=== PATIENT | female | born 1955 | race Caucasian/White ===

== ENCOUNTER 2019-06-30 10:08 | Day surgery (SDC) | payer MEDICARE, MEDICAID ==
[~2019-06-30 10:08] MED LIST: Phenylephrine 2.5% Ophth Soln 5 ML BOT ONE
== END 2019-06-30 13:30 | disposition home or self-care (01) ==
LOC: SDC 10:08
PROVIDERS: ATTEND Ophthalmology
PROC: 085J3ZZ Destruction of Right Lens, Percutaneous Approach (ICD-10-PCS; principal; 2019-06-30)
DX: E11.36 Type 2 diabetes mellitus with diabetic cataract (principal); H26.491 Other secondary cataract, right eye; Z88.1 Allergy status to other antibiotic agents; Z88.5 Allergy status to narcotic agent; Z79.899 Other long term (current) drug therapy

== ENCOUNTER 2019-08-14 18:40 | Emergency (ER) | payer MEDICARE, MEDICAID ==
[2019-08-14 19:30] LABS: Bilirubin Negative (Negative); Blood, Urine 1+ (Negative); Clarity Clear (Clear); Glucose, Urine (Dipstick) Normal (Negative); Leukocyte 75 Leu/uL (Negative); Nitrite Negative (Negative); Protein, Urine (Dipstick) Negative (Neg-Trace); Squamous Epithelial 0-3 HPF (0-3); Urobilinogen Normal mg/dL (Less than 2); WBC/HPF 0-3 HPF (0-3)
[2019-08-14 19:40] LABS: Bacteria/HPF 1+ HPF (None Seen)
[2019-08-14 19:52] LABS: #Basophils 0.1 thou/uL (0.0-0.2); #Eosinphils 0.5 thou/uL (0.0-0.7); #Lymphocytes 3.2 thou/uL (1.20-3.40); #Neutrophils 7.5 thou/uL (1.40-6.50); %Basophils 1.1 % (0.0-1.0); %Lymphocytes 26.1 % (21.0-51.0); %Monocytes 8.4 % (0.0-10.0); %Neutrophils 60.4 % (42.0-75.0); Hemoglobin 15.2 g/dL (12.0-16.0); Mean Corpuscular Hemoglobin 30.5 pg (27.0-31.0); Mean Corpuscular Volume 89.7 fL (78.0-98.0); Mean Platelet Volume 9.5 fL (7.4-10.4); Platelet Count 192 thou/uL (130-400); RBC Distribution Width 12.3 % (11.5-14.5); Red Blood Cell (RBC) Count 4.99 mill/uL (4.20-5.40); White Blood Cell (WBC) Count 12.4 thou/uL (4.8-10.8)
[2019-08-14] MEDS ORDERED: Morphine 4 MG/ML VIAL ONE (19:57)
[2019-08-14] MEDS ORDERED: Ondansetron PF 4 MG/2 ML Vial ONE (19:57)
[2019-08-14 20:08] LABS: ALT (SGPT) 12 U/L (8-55); AST (SGOT) 13 U/L (5-34); Albumin 4.2 g/dL (3.4-4.8); Alkaline Phosphatase 96 U/L (40-110); Anion Gap 15 mmol/L (10-20); BUN (Urea Nitrogen) 13 mg/dL (9.8-20.1); Bilirubin, Total 0.4 mg/dL (0.2-1.2); Calc. Creatinine Clearance 0 mL/min (70-130); Calcium 9.3 mg/dL (7.8-10.44); Carbon Dioxide 24 mmol/L (23-31); Chloride 107 mmol/L (98-107); Estimated GFR-MDRD 82; Globulin 2.7 g/dL (2.4-3.5); Glucose 89 mg/dL (80-115); Potassium 4.2 mmol/L (3.5-5.1); Protein, Total 6.9 g/dL (6.0-8.3); Sodium 142 mmol/L (136-145)
[2019-08-14] MEDS ORDERED: diphenhydrAMINE 50 MG/ML VIAL ONE (20:08)
--- NOTE | 2019-08-14 21:34 | CT ---
CT ABDOMEN NONCONTRAST CT PELVIS NONCONTRAST: (Urolithiasis protocol) DATE: 08/14/2019 HISTORY: 64-year-old female with left flank pain, dysuria, and urinary frequency. COMPARISON: 02/16/2019 TECHNIQUE: IV injection of iodinated contrast media: None Oral contrast media: None FINDINGS: Other than for urolithiasis, the lack of IV and oral contrast limits the evaluation. A few punctate 1 or 2 mm calculi in right renal upper-mid pole calculi, at least 2. Punctate 1 mm calculus at left renal upper pole calyx. Another punctate calcification at left renal upper pole is atherosclerotic calcific patient of renal artery branch. No hydronephrosis. No ureteral or bladder calculus. Appendix not visualized, (has there been appendectomy?) . Within limitations of noncontrast scan, no major pathology identified involving liver, pancreas, adre nals, spleen, or urinary bladder. No colonic diverticulitis, small bowel dilation, ascites, pneumoperitoneum, or pleural effusion. Cholecystectomy clips. No interval change. IMPRESSION: 1) mild bilateral nephrolithiasis consisting of a few tiny 1 or 2 mm calculi. 2) no obstructive uropathy.
[2019-08-14] MEDS ORDERED: Acetaminophen 500 MG TAB ONE (22:03)
[2019-08-14] MEDS ORDERED: Phenazopyridine HCl 97.5 MG TABLET ONE (22:15)
== END 2019-08-14 22:32 | disposition home or self-care (01) ==
LOC: ERS 18:40
DX: N39.0 Urinary tract infection, site not specified (principal); I10 Essential (primary) hypertension; J44.9 Chronic obstructive pulmonary disease, unspecified; F31.9 Bipolar disorder, unspecified; F17.210 Nicotine dependence, cigarettes, uncomplicated; Z87.442 Personal history of urinary calculi; Z79.891 Long term (current) use of opiate analgesic; Z79.899 Other long term (current) drug therapy
CPT/HCPCS: 74176; 80053; 81003; 81015; 85025; 87086; 96374; 96375; J1200; J2270; J2405

== ENCOUNTER 2021-01-01 11:32 | Outpatient (CLI) | payer MEDICARE, MEDICAID ==
[2021-01-01 14:47] LABS: Bilirubin Neg (Negative); Blood, Urine 25 (Negative); Clarity Clear (Clear); Glucose, Urine (Dipstick) Normal (Negative); Ketone, Urine Negative (Negative); Leukocyte Negative (Negative); Nitrite Negative (Negative); Protein, Urine (Dipstick) Negative (Neg-Trace); Specific Gravity, Urine 1.005 (1.002-1.036); Urobilinogen Normal mg/dL (Less than 2)
[2021-01-01 14:53] LABS: Hemoglobin 15.4 g/dL (12.0-15.5); Mean Corpuscular HGB CONC 32.3 g/dL (32.0-36.0); Mean Corpuscular Hemoglobin 29.3 pg (27.0-33.0); Mean Corpuscular Volume 90.7 fl (81.6-98.3); Mean Platelet Volume 12.4 fl (7.4-10.4); Platelet Count 225 10x3/uL (150-450); RBC Distribution Width 13.7 % (11.5-14.5); Red Blood Cell (RBC) Count 5.26 10x6/uL (3.90-5.03); White Blood Cell (WBC) Count 10.1 10x3/uL (3.5-10.5)
[2021-01-01 15:14] LABS: PTT 28.7 sec (22.0-33.0); Prothrombin Time 10.9 sec (9.5-12.1)
[2021-01-01 15:14] LABS: RBC/HPF 0-3 HPF (0-3); Squamous Epithelial None Seen HPF (0-3); WBC/HPF None Seen HPF (0-3)
[2021-01-01 15:15] LABS: Bacteria/HPF None Seen HPF (None Seen)
[2021-01-01 15:15] LABS: Anion Gap 14 mmol/L (10-20); BUN (Urea Nitrogen) 15 mg/dL (9.8-20.1); Calc. Creatinine Clearance 0 mL/min (70-130); Calcium 9.4 mg/dL (7.8-10.44); Carbon Dioxide 28 mmol/L (23-31); Chloride 101 mmol/L (98-107); Glucose 74 mg/dL (80-115); Potassium 4.9 mmol/L (3.5-5.1); Sodium 138 mmol/L (136-145)
[2021-01-01 21:39] LABS: SARS-CoV-2 PCR by NAA Not Detected (NotDetected)
== END 2021-01-01 11:33 | disposition home or self-care (01) ==
LOC: LABBT 11:32
PROVIDERS: ATTEND Urology
DX: Z01.818 Encounter for other preprocedural examination (principal); N39.41 Urge incontinence; N20.0 Calculus of kidney; N39.0 Urinary tract infection, site not specified; N39.3 Stress incontinence (female) (male); E66.01 Morbid (severe) obesity due to excess calories; Z20.822 Contact with and (suspected) exposure to COVID-19
CPT/HCPCS: 71046; 80048; 81001; 85027; 85610; 85730; 87086; U0003; U0005; 93005; 93010

== ENCOUNTER 2021-01-04 05:36 | Day surgery (SDC) | payer MEDICARE, MEDICAID ==
[2021-01-03 10:15] VITALS: BMI 41.6
[2021-01-04] MEDS ORDERED: SUGAMMADEX SODIUM 500 MG/5 ML VIAL ONE (06:13)
[2021-01-04] MEDS ORDERED: Fentanyl 100 MCG/2 ML VIAL ONE ×3 (06:13→10:51)
[2021-01-04] MEDS ORDERED: Famotidine/PF 20 mg/2ml Vial ONE (06:14)
[2021-01-04] MEDS ORDERED: Neomycin-Polymyxin 1 ML AMP ONE (06:28)
[2021-01-04] MEDS ORDERED: Bupivacaine 0.25% HCL 30 ML VIAL ONE (06:28)
[2021-01-04] MEDS ORDERED: Midazolam HCl 2 mg/2 ml Vial ONE (07:29)
[2021-01-04] MEDS ORDERED: Propofol 1,000 MG/100 ML VIAL IV ONE (07:43)
[2021-01-04] MEDS ORDERED: Lidocaine 1% PF 5 ML VIAL ONE (07:59)
[2021-01-04] MEDS ORDERED: Ondansetron PF 4 MG/2 ML Vial ONE (07:59)
[2021-01-04] MEDS ORDERED: Rocuronium Bromide 10 MG/ML (10ML VIAL) ONE (07:59)
[2021-01-04] MEDS ORDERED: PHENYLEPHRINE-NS 100 MCG/ML 10 ML SYRINGE ONE (07:59)
[2021-01-04] MEDS ORDERED: Metoclopramide HCl 10 MG/2 ML VIAL ONE (07:59)
[2021-01-04] MEDS ORDERED: PROPOFOL 200 MG/20 ML VIAL ONE (07:59)
[2021-01-04] MEDS ORDERED: Glycopyrrolate 0.2 MG/ML 5 ML SYRINGE ONE (07:59)
[2021-01-04] MEDS ORDERED: HYDROcodone/Acetaminophen 5/325 mg Tablet ONE (11:32)
== END 2021-01-04 12:45 | disposition home or self-care (01) ==
LOC: SDC 05:36
PROVIDERS: ATTEND Urology
PROC: 01HY0MZ Insertion of Neurostimulator Lead into Peripheral Nerve, Open Approach (ICD-10-PCS; principal; 2021-01-04)
DX: N39.46 Mixed incontinence (principal); N32.81 Overactive bladder; R35.0 Frequency of micturition; F17.200 Nicotine dependence, unspecified, uncomplicated; E66.01 Morbid (severe) obesity due to excess calories; Z68.41 Body mass index [BMI] 40.0-44.9, adult; Z87.440 Personal history of urinary (tract) infections; Z79.899 Other long term (current) drug therapy; Z88.1 Allergy status to other antibiotic agents; Z88.5 Allergy status to narcotic agent; Z88.6 Allergy status to analgesic agent; Z88.8 Allergy status to other drugs, medicaments and biological substances
CPT/HCPCS: 72220; 76000; J0690; J2250; J2405; J2704; J2765; J3010; S0020; S0028

== ENCOUNTER 2021-01-08 09:43 | Outpatient (CLI) | payer MEDICARE, MEDICAID ==
[2021-01-09 11:14] LABS: SARS-CoV-2 PCR by NAA Not Detected (NotDetected)
== END 2021-01-08 09:44 | disposition home or self-care (01) ==
LOC: LABBT 09:43
PROVIDERS: ATTEND Urology
DX: Z01.812 Encounter for preprocedural laboratory examination (principal); N39.41 Urge incontinence; N20.0 Calculus of kidney; N39.0 Urinary tract infection, site not specified; N39.3 Stress incontinence (female) (male); E66.01 Morbid (severe) obesity due to excess calories; Z20.822 Contact with and (suspected) exposure to COVID-19
CPT/HCPCS: U0003; U0005

== ENCOUNTER 2021-01-11 07:37 | Day surgery (SDC) | payer MEDICARE, MEDICAID ==
[2021-01-10 12:17] VITALS: BMI 41.6
[2021-01-11] MEDS ORDERED: Vancomycin 1 GM/200 ML BAG ONE (08:55)
[2021-01-11] MEDS ORDERED: Fentanyl 100 MCG/2 ML VIAL ONE ×2 (10:11→11:46)
[2021-01-11] MEDS ORDERED: Midazolam HCl 2 mg/2 ml Vial ONE (10:11)
[2021-01-11] MEDS ORDERED: Neomycin-Polymyxin 1 ML AMP ONE (10:15)
[2021-01-11] MEDS ORDERED: Bupivacaine 0.25% HCL 30 ML VIAL ONE (10:15)
[2021-01-11] MEDS ORDERED: Dexamethasone 20 MG/5 ML VIAL ONE (10:33)
[2021-01-11] MEDS ORDERED: Ondansetron PF 4 MG/2 ML Vial ONE (10:33)
[2021-01-11] MEDS ORDERED: Glycopyrrolate 0.2 MG/ML 5 ML SYRINGE ONE (10:33)
[2021-01-11] MEDS ORDERED: Rocuronium Bromide 10 MG/ML (10ML VIAL) ONE (10:33)
[2021-01-11] MEDS ORDERED: PROPOFOL 200 MG/20 ML VIAL ONE (10:33)
[2021-01-11] MEDS ORDERED: Lidocaine 1% PF 5 ML VIAL ONE (10:33)
[2021-01-11] MEDS ORDERED: HYDROmorphone 2 MG/ML VIAL ONE (12:01)
[2021-01-11] MEDS ORDERED: HYDROcodone/Acetaminophen 5/325 mg Tablet ONE (14:33)
== END 2021-01-11 15:05 | disposition home or self-care (01) ==
LOC: SDC 07:37
PROVIDERS: ATTEND Urology
PROC: 0JH80MZ Insertion of Stimulator Generator into Abdomen Subcutaneous Tissue and Fascia, Open Approach (ICD-10-PCS; principal; 2021-01-11)
DX: N39.46 Mixed incontinence (principal); N32.81 Overactive bladder; F17.200 Nicotine dependence, unspecified, uncomplicated; E66.01 Morbid (severe) obesity due to excess calories; Z68.41 Body mass index [BMI] 40.0-44.9, adult; Z79.899 Other long term (current) drug therapy; Z88.1 Allergy status to other antibiotic agents; Z88.5 Allergy status to narcotic agent; Z88.6 Allergy status to analgesic agent
CPT/HCPCS: J0690; J1100; J1170; J2250; J2405; J2704; J3010; J3370; S0020

== ENCOUNTER 2022-08-28 18:28 | Emergency (ER) | payer OTHER, MEDICAID ==
[2022-08-28 19:24] LABS: #Basophils 0.1 thou/uL (0.0-0.2); #Eosinphils 0.1 thou/uL (0.0-0.7); #Monocytes 0.7 thou/uL (0.11-0.59); #Neutrophils 4.7 thou/uL (1.40-6.50); %Basophils 0.7 % (0.0-1.0); %Eosinophils 1.6 % (0.0-10.0); %Lymphocytes 26.9 % (21.0-51.0); %Monocytes 8.8 % (0.0-10.0); Hemoglobin 14.5 g/dL (12.0-16.0); Mean Corpuscular HGB CONC 32.3 g/dL (32.0-36.0); Mean Corpuscular Hemoglobin 29.9 pg (27.0-31.0); Mean Corpuscular Volume 92.4 fl (78.0-98.0); Mean Platelet Volume 9.1 fL (7.4-10.4); Platelet Count 179 10x3/uL (130-400); RBC Distribution Width 12.5 % (11.5-14.5); Red Blood Cell (RBC) Count 4.86 mill/uL (4.20-5.40); White Blood Cell (WBC) Count 7.6 10x3/uL (4.8-10.8)
[2022-08-28 19:45] LABS: ALT (SGPT) 28 U/L (8-55); AST (SGOT) 17 U/L (5-34); Alkaline Phosphatase 67 U/L (40-110); Anion Gap 14 mmol/L (10-20); BUN (Urea Nitrogen) 11 mg/dL (9.8-20.1); Bilirubin, Total 0.3 mg/dL (0.2-1.2); Calc. Creatinine Clearance 0 mL/min (70-130); Calcium 9.2 mg/dL (7.8-10.44); Carbon Dioxide 25 mmol/L (23-31); Chloride 104 mmol/L (98-107); Estimated GFR 77; Globulin 2.9 g/dL (2.4-3.5); Glucose 95 mg/dL (80-115); Lipase 16 U/L (8-78); Potassium 3.8 mmol/L (3.5-5.1); Protein, Total 6.9 g/dL (5.8-8.1); Sodium 139 mmol/L (136-145)
== END 2022-08-28 21:41 | disposition home or self-care (01) ==
LOC: ERS 18:28
DX: M54.50 Low back pain, unspecified (principal); I10 Essential (primary) hypertension; J44.9 Chronic obstructive pulmonary disease, unspecified; F17.210 Nicotine dependence, cigarettes, uncomplicated
CPT/HCPCS: 36415; 80053; 83690; 85025; 99283

== ENCOUNTER 2023-09-12 09:56 | Outpatient (CLI) | payer OTHER, MEDICAID | END 2023-09-12 09:57 | disposition home or self-care (01) | LOC: BICRAD 09:56 | PROVIDERS: ATTEND Student in an Organized Health Care Education/Training Program | DX: M70.62 Trochanteric bursitis, left hip (principal) ==

== ENCOUNTER 2023-12-31 14:53 | Outpatient (CLI) | payer OTHER, MEDICAID ==
[2023-12-31 15:45] LABS: Bilirubin Neg (Negative); Blood, Urine 50 (Negative); Clarity Clear (Clear); Glucose, Urine (Dipstick) Normal (Negative); Ketone, Urine Negative (Negative); Leukocyte Negative (Negative); Nitrite Negative (Negative); Protein, Urine (Dipstick) Negative (Neg-Trace); Urobilinogen Normal mg/dL (Less than 2)
[2023-12-31 16:03] LABS: Hematocrit 44.8 % (34.9-44.5); Hemoglobin 14.7 g/dL (12.0-15.5); Mean Corpuscular HGB CONC 32.8 g/dL (32.0-36.0); Mean Corpuscular Hemoglobin 29.3 pg (27.0-33.0); Mean Corpuscular Volume 89.2 fL (81.6-98.3); Mean Platelet Volume 11.1 fL (7.4-10.4); Platelet Count 238 10x3/uL (150-450); RBC Distribution Width 14.1 % (11.5-14.5); Red Blood Cell (RBC) Count 5.02 10x6/uL (3.90-5.03); White Blood Cell (WBC) Count 9.5 10x3/uL (3.5-10.5)
[2023-12-31 16:12] LABS: PTT 27.9 sec (22.0-33.0); Prothrombin Time 10.6 sec (9.5-12.1)
[2023-12-31 16:13] LABS: Anion Gap 13 mmol/L (10-20); BUN (Urea Nitrogen) 17 mg/dL (9.8-20.1); Calc. Creatinine Clearance 0 mL/min (70-130); Calcium 9.5 mg/dL (7.8-10.44); Carbon Dioxide 25 mmol/L (23-31); Chloride 106 mmol/L (98-107); Estimated GFR 78; Glucose 91 mg/dL (80-115); Potassium 4.2 mmol/L (3.5-5.1); Sodium 140 mmol/L (136-145)
[2023-12-31 17:06] LABS: Squamous Epithelial 0-3 HPF (0-3); Transitional Epithelial 0-3 HPF (None Seen); WBC/HPF 0-3 HPF (0-3)
[2024-01-01 13:33] LABS: Bacteria/HPF 2+ HPF (None Seen)
== END 2023-12-31 14:54 | disposition home or self-care (01) ==
LOC: LABBT 14:53
PROVIDERS: ATTEND Urology
DX: Z01.818 Encounter for other preprocedural examination (principal); N20.0 Calculus of kidney; N39.0 Urinary tract infection, site not specified; E66.01 Morbid (severe) obesity due to excess calories; N39.46 Mixed incontinence
CPT/HCPCS: 80048; 81001; 85027; 85610; 85730; 87086; 93005; 93010

== ENCOUNTER 2024-01-08 10:26 | Day surgery (SDC) | payer OTHER ==
[2023-12-31 15:19] VITALS: BMI 41.8
[2024-01-08] MEDS ORDERED: fentaNYL 50 mcg/mL 1 mL Vial ONE ×2 (14:37→14:40)
[2024-01-08] MEDS ORDERED: LevoFLOXacin D5W 500 mg (100 mL) BAG ONE (14:37)
[2024-01-08] MEDS ORDERED: PROPOFOL 20 ML ONE (14:40)
[2024-01-08] MEDS ORDERED: Midazolam HCl 2 mg/2 ml Vial ONE (14:41)
[2024-01-08] MEDS ORDERED: Iopamidol 15 ML ONE (14:57)
[2024-01-08] MEDS ORDERED: Ketamine In 0.9 % NaCl 50 MG/5 ML SYRINGE ONE (15:10)
[2024-01-08] MEDS ORDERED: Rocuronium Bromide 10 MG/ML (10ML VIAL) ONE (15:26)
[2024-01-08] MEDS ORDERED: Atropine Sulfate 0.4 mg/1 ml Vial ONE (15:26)
[2024-01-08] MEDS ORDERED: Lidocaine 1% PF 5 ML VIAL ONE (15:26)
[2024-01-08] MEDS ORDERED: SUCCINYLCHOLINE/SOD CL,ISO/PF 200 MG/10 ML SYRINGE FS ONE (15:26)
[2024-01-08] MEDS ORDERED: ePHEDrine Sulfate 50 MG/10 ML VIAL ONE (15:36)
[2024-01-08] MEDS ORDERED: Dexamethasone 20 MG/5 ML VIAL ONE (16:06)
[2024-01-08] MEDS ORDERED: Ondansetron PF 4 MG/2 ML Vial ONE (16:06)
[2024-01-08] MEDS ORDERED: SUGAMMADEX SODIUM 200 MG/2 ML VIAL ONE (16:07)
[2024-01-08] MEDS ORDERED: fentaNYL PF 100 MCG/2 ML SYRINGE ONE ×2 (16:28→17:03)
[2024-01-08] MEDS ORDERED: HYDROcodone/Acetaminophen 5/325 mg Tablet ONE (16:45)
== END 2024-01-08 18:20 | disposition home or self-care (01) ==
LOC: SDC 10:26
PROVIDERS: ATTEND Urology
PROC: 0TJB8ZZ Inspection of Bladder, Via Natural or Artificial Opening Endoscopic (ICD-10-PCS; principal; 2024-01-08)
PROC: 0T768DZ Dilation of Right Ureter with Intraluminal Device, Via Natural or Artificial Opening Endoscopic (ICD-10-PCS; 2024-01-08)
DX: N20.0 Calculus of kidney (principal); N39.41 Urge incontinence; N39.0 Urinary tract infection, site not specified; N39.3 Stress incontinence (female) (male); E66.01 Morbid (severe) obesity due to excess calories; M19.90 Unspecified osteoarthritis, unspecified site; Z68.41 Body mass index [BMI] 40.0-44.9, adult; Z96.653 Presence of artificial knee joint, bilateral; Z98.890 Other specified postprocedural states; Z79.899 Other long term (current) drug therapy; F17.200 Nicotine dependence, unspecified, uncomplicated; Z88.5 Allergy status to narcotic agent; Z88.1 Allergy status to other antibiotic agents; Z88.8 Allergy status to other drugs, medicaments and biological substances
CPT/HCPCS: 52000; 52332; 52352; 74420; 82365; C1713; C1747; C1769; C2617; J0461; J1100; J1956; J2250; J2405; J2704; J3010; J3490; Q9967; 88300

== ENCOUNTER 2024-04-29 07:47 | Outpatient (CLI) | payer OTHER ==
[2024-04-29 10:04] LABS: Hematocrit 45.5 % (36.0-47.0); Hemoglobin 14.4 g/dL (12.0-16.0); Mean Corpuscular HGB CONC 31.6 g/dL (32.0-36.0); Mean Corpuscular Hemoglobin 28.7 pg (27.0-31.0); Mean Corpuscular Volume 90.6 fL (78.0-98.0); Mean Platelet Volume 11.3 fL (7.4-10.4); Platelet Count 238 10x3/uL (130-400); RBC Distribution Width 14.3 % (11.5-14.5); Red Blood Cell (RBC) Count 5.02 mill/uL (4.20-5.40)
[2024-04-29 10:07] LABS: PTT 33.8 sec (22.9-36.1); Prothrombin Time 12.9 sec (12.0-14.7)
[2024-04-29 10:11] LABS: Anion Gap 10 mmol/L (10-20); BUN (Urea Nitrogen) 17 mg/dL (9.8-20.1); Calc. Creatinine Clearance 0 mL/min (70-130); Calcium 9.1 mg/dL (7.8-10.44); Carbon Dioxide 27 mmol/L (23-31); Chloride 104 mmol/L (98-107); Estimated GFR 81; Glucose 94 mg/dL (80-115); Potassium 4.4 mmol/L (3.5-5.1); Sodium 137 mmol/L (136-145)
[2024-04-29 10:16] LABS: Bacteria/HPF None Seen HPF (None Seen); RBC/HPF 0-3 HPF (0-3); Squamous Epithelial 0-3 HPF (0-3); WBC/HPF None Seen HPF (0-3)
== END 2024-04-29 07:48 | disposition home or self-care (01) ==
LOC: LABBT 07:47
PROVIDERS: ATTEND Urology
DX: Z01.818 Encounter for other preprocedural examination (principal); N39.0 Urinary tract infection, site not specified; N20.0 Calculus of kidney
CPT/HCPCS: 71045; 80048; 81015; 85027; 85610; 85730; 87086; 93005; 93010